=== PATIENT | female | born 1990 | race Caucasian/White ===

== ENCOUNTER 2021-09-19 09:41 | Observation (INO) | payer MEDICAID ==
[~2021-09-19] VITALS: Ht 152.4 cm; Wt 79.8 kg
[2021-09-19] MEDS ORDERED: PREN-176 MT (10:34)
[2021-09-19] MEDS ORDERED: URSO300C4 PO (10:34)
[2021-09-19] MEDS ORDERED: ASPI-1497 PO (10:36)
[2021-09-19 10:58] LABS: CLARITY URINE CLOUDY (CLEAR); COLOR URINE YELLOW (YELLOW); KETONES URINE NEGATIVE (NEGATIVE); LEUKOCYTE ESTERASE URINE 3+ (NEGATIVE); NITRITE URINE POSITIVE (NEGATIVE); OCCULT BLOOD URINE 3+ (NEGATIVE); PH URINE 6.5 (4.5-8.0); PROTEIN URINE 1+ (NEGATIVE); UROBILINOGEN URINE 0.2 E.U./dL (0.2-1.0)
[2021-09-19] MEDS ORDERED: LACTATED RINGERS 1,000 ML IV SCH (12:30)
[2021-09-19] MEDS ORDERED: CEFAZOLIN 1000MG PREMIX 50 ML IV SCH (14:00)
== END 2021-09-19 14:00 | disposition home or self-care (01) ==
LOC: 8 EST LDRP 09:41
PROVIDERS: ADMIT Obstetrics & Gynecology; ATTEND Obstetrics & Gynecology
DX: O26.853 Spotting complicating pregnancy, third trimester (principal); O26.893 Other specified pregnancy related conditions, third trimester; R10.2 Pelvic and perineal pain; Z3A.33 33 weeks gestation of pregnancy
CPT/HCPCS: 59025; 76805; 76818; 81003; 87077; 87086; 87186; 96365; G0378; J0690; 96360; 99281

== ENCOUNTER 2021-09-26 23:32 | Inpatient (IN) | payer MEDICAID ==
[~2021-09-26] VITALS: Ht 152.4 cm; Wt 79.8 kg
[~2021-09-26 23:32] MED LIST: ASPI-1497 PO; PREN-176 MT; URSO300C4 PO
[2021-09-27] MEDS ORDERED: LACTATED RINGERS 1,000 ML IV NR (00:30)
[2021-09-27] MEDS: ACETAMINOPHEN 500MG TABLET PO PRN ×4 (00:58→20:16)
[2021-09-27 01:18] LABS: HEMATOCRIT. 37.8 % (36.0-48.0); HEMOGLOBIN. 12.8 g/dL (12.0-16.0); MEAN CORPUSCULAR VOLUME 82.5 fL (81.0-99.0); MEAN PLATELET VOLUME 9.3 fl (7.4-10.4); PLATELET 223 x1000/uL (130-400); RED BLOOD CELL COUNT 4.58 mill/uL (4.2-5.4); RED CELL DISTRIBUTION WIDTH 15.2 % (11.6-14.6)
[2021-09-27 01:21] LABS: CHLORIDE 108 mEq/L (98-107)
[2021-09-27 01:42] LABS: CLARITY URINE CLOUDY (CLEAR); COLOR URINE YELLOW (YELLOW); KETONES URINE TRACE (NEGATIVE); LEUKOCYTE ESTERASE URINE 3+ (NEGATIVE); NITRITE URINE POSITIVE (NEGATIVE); OCCULT BLOOD URINE 3+ (NEGATIVE); PROTEIN URINE 1+ (NEGATIVE); SPECIFIC GRAVITY URINE 1.014 (1.005-1.030)
[2021-09-27] MEDS ORDERED: ACETAMINOPHEN 500MG TABLET PO PRN (02:15)
[2021-09-27] MEDS ORDERED: AMPICILLIN 2,000 MG in SODIUM CHLORIDE 0.9% 100 ML IV NR (02:30)
[2021-09-27] MEDS: GENTAMICIN 80MG PREMIX 100 ML IV SCH ×3 (03:41→20:04)
[2021-09-27] MEDS: LACTATED RINGERS 1,000 ML IV SCH ×2 (04:09→15:19)
[2021-09-27 06:01] LABS: PLATELET ESTIMATE NORMAL
[2021-09-27 06:43] LABS: BASOPHILS % 0.3 % (0.0-2.0); EOSINOPHILS % 0.1 % (0.0-5.0); HEMATOCRIT. 35.5 % (36.0-48.0); HEMOGLOBIN. 11.8 g/dL (12.0-16.0); LYMPHOCYTES % 7.7 % (20.0-50.0); MEAN CORPUSCULAR VOLUME 84.3 fL (81.0-99.0); MEAN PLATELET VOLUME 8.8 fl (7.4-10.4); NEUTROPHILS % 85.9 % (40.0-76.0); PLATELET 201 x1000/uL (130-400); RED BLOOD CELL COUNT 4.21 mill/uL (4.2-5.4); RED CELL DISTRIBUTION WIDTH 15.3 % (11.6-14.6)
[2021-09-27] MEDS: AMPICILLIN 1,000 MG in SODIUM CHLORIDE 0.9% 50 ML IV SCH ×3 (09:23→21:01)
[2021-09-27] MEDS: ASPIRIN 81MG TABLET PO SCH ×2 (09:25→17:01)
[2021-09-27] MEDS: URSODIOL 300MG CAPSULE PO SCH ×3 (09:25→17:01)
[2021-09-27] MEDS: PRENATAL VIT/FE FUMARATE/FA TABLET PO SCH (09:26)
[2021-09-27] MEDS: DOCUSATE SODIUM 100MG CAPSULE PO SCH (23:21)
[2021-09-28] MEDS: LACTATED RINGERS 1,000 ML IV SCH ×3 (01:02→20:35)
[2021-09-28] MEDS: AMPICILLIN 1,000 MG in SODIUM CHLORIDE 0.9% 50 ML IV SCH ×4 (03:00→20:37)
[2021-09-28] MEDS: GENTAMICIN 80MG PREMIX 100 ML IV SCH ×3 (04:03→20:24)
[2021-09-28 06:49] LABS: HEMATOCRIT 34.4 % (36.0-48.0); HEMOGLOBIN 11.4 g/dL (12.0-16.0); MEAN CORPUSCULAR HEMOGLOBIN 28.2 pg (28.0-32.0); MEAN CORPUSCULAR VOLUME 84.9 fL (81.0-99.0); PLATELET 179 x1000/uL (130-400); RED BLOOD CELL COUNT 4.05 mill/uL (4.2-5.4); RED CELL DISTRIBUTION WIDTH 15.8 % (11.6-14.6)
[2021-09-28] MEDS: ASPIRIN 81MG TABLET PO SCH ×3 (08:58→17:05)
[2021-09-28] MEDS: DOCUSATE SODIUM 100MG CAPSULE PO SCH (09:00)
[2021-09-28] MEDS: URSODIOL 300MG CAPSULE PO SCH ×3 (09:00→17:05)
[2021-09-28] MEDS: PRENATAL VIT/FE FUMARATE/FA TABLET PO SCH (09:01)
[2021-09-28 10:26] LABS: HEMOGLOBIN. 11.8 g/dL (12.0-16.0); MEAN CORPUSCULAR HEMOGLOBIN 28.7 pg (28.0-32.0); MEAN CORPUSCULAR VOLUME 84.8 fL (81.0-99.0); MEAN PLATELET VOLUME 9.2 fl (7.4-10.4); PLATELET 193 x1000/uL (130-400); RED BLOOD CELL COUNT 4.12 mill/uL (4.2-5.4); RED CELL DISTRIBUTION WIDTH 15.1 % (11.6-14.6)
[2021-09-28 10:28] LABS: CHLORIDE 106 mEq/L (98-107)
[2021-09-28 15:46] LABS: PLATELET ESTIMATE NORMAL
[2021-09-29] MEDS: AMPICILLIN 1,000 MG in SODIUM CHLORIDE 0.9% 50 ML IV SCH ×2 (02:38→09:55)
[2021-09-29] MEDS: GENTAMICIN 80MG PREMIX 100 ML IV SCH ×2 (03:44→12:25)
[2021-09-29] MEDS: LACTATED RINGERS 1,000 ML IV SCH (07:36)
[2021-09-29] MEDS: URSODIOL 300MG CAPSULE PO SCH ×2 (09:00→12:58)
[2021-09-29] MEDS: DOCUSATE SODIUM 100MG CAPSULE PO SCH (09:00)
[2021-09-29] MEDS: PRENATAL VIT/FE FUMARATE/FA TABLET PO SCH (09:26)
[2021-09-29] MEDS ORDERED: NITR50CA50 MT ×2 (15:49)
== END 2021-09-29 16:10 | disposition home or self-care (01) | DRG 566 ==
LOC: OBSVTOIN 23:32 → 8 EST LDRP 23:32 → 8 EST A/PP 09-27 06:06
PROVIDERS: ADMIT Obstetrics & Gynecology; ATTEND Obstetrics & Gynecology
DX: O23.03 Infections of kidney in pregnancy, third trimester (principal); K83.1 Obstruction of bile duct; O26.613 Liver and biliary tract disorders in pregnancy, third trimester; N12 Tubulo-interstitial nephritis, not specified as acute or chronic; Z20.822 Contact with and (suspected) exposure to COVID-19; Z3A.35 35 weeks gestation of pregnancy; B96.20 Unspecified Escherichia coli [E. coli] as the cause of diseases classified elsewhere
CPT/HCPCS: 36415; 71045; 76805; 76818; 80048; 80053; 80170; 81003; 85025; 85027; 87077; 87186; 87426; 96360; 99281; G0378; J0290; J1580; J7050; J7120

== ENCOUNTER 2021-10-15 06:36 | Inpatient (IN) | payer MEDICAID, MEDICARE ==
[~2021-10-15] VITALS: Ht 152.4 cm; Wt 79.8 kg
[~2021-10-15 06:36] MED LIST changes: +NITR50CA50 MT
[2021-10-15] MEDS ORDERED: METHYLERGONOVINE MALEATE 0.2 MG/ML IM PRN (08:30)
[2021-10-15] MEDS ORDERED: DEXT 5%/LR + PITOCIN 20UNITS/L 1,000 ML IV SCH ×2 (08:30→14:30)
[2021-10-15 08:48] LABS: BASOPHILS % 0.9 % (0.0-2.0); EOSINOPHILS % 1.1 % (0.0-5.0); HEMATOCRIT. 36.6 % (36.0-48.0); HEMOGLOBIN. 12.8 g/dL (12.0-16.0); LYMPHOCYTES % 25.4 % (20.0-50.0); MEAN CORPUSCULAR HEMOGLOBIN 29.1 pg (28.0-32.0); MEAN CORPUSCULAR VOLUME 82.9 fL (81.0-99.0); MEAN PLATELET VOLUME 9.2 fl (7.4-10.4); MONOCYTES % 8.8 % (2.0-8.0); NEUTROPHILS % 63.8 % (40.0-76.0); PLATELET 277 x1000/uL (130-400); RED BLOOD CELL COUNT 4.41 mill/uL (4.2-5.4); RED CELL DISTRIBUTION WIDTH 15.7 % (11.6-14.6)
[2021-10-15] MEDS: LACTATED RINGERS 1,000 ML IV SCH ×2 (08:57→10:04)
[2021-10-15 08:59] LABS: PARTIAL THROMBOPLASTIN TIME 27.5 sec (23.4-31.0); PROTHROMBIN TIME 10.3 sec (9.6-11.0)
[2021-10-15 09:00] LABS: CLARITY URINE CLOUDY (CLEAR); COLOR URINE DARK YELLOW (YELLOW); KETONES URINE TRACE (NEGATIVE); LEUKOCYTE ESTERASE URINE NEGATIVE (NEGATIVE); NITRITE URINE NEGATIVE (NEGATIVE); OCCULT BLOOD URINE NEGATIVE (NEGATIVE); PROTEIN URINE TRACE (NEGATIVE); SPECIFIC GRAVITY URINE 1.026 (1.005-1.030); UROBILINOGEN URINE 0.2 E.U./dL (0.2-1.0)
[2021-10-15 09:12] LABS: *AMPHETAMINES SCREEN URINE NEGATIVE (NEGATIVE); *BARBITURATES SCREEN URINE NEGATIVE (NEGATIVE); *BENZODIAZEPINES SCREEN URINE NEGATIVE (NEGATIVE); *COCAINE SCREEN URINE NEGATIVE (NEGATIVE); METHADONE URINE SCREEN NEGATIVE (NEGATIVE); OPIATES URINE SCREEN NEGATIVE (NEGATIVE)
[2021-10-15 09:13] LABS: CANNABINOID URINE SCREEN NEGATIVE (NEGATIVE); PHENCYCLIDINE URINE SCREEN NEGATIVE (NEGATIVE)
[2021-10-15 10:28] LABS: HEPATITIS B SURFACE ANTIGEN NEGATIVE
[2021-10-15] MEDS ORDERED: MORPHINE SULFATE/PF 1MG/ML 10ML AMP ONE (12:24)
[2021-10-15] MEDS ORDERED: EPHEDRINE SULFATE 50MG/ML VIAL ONE (12:56)
[2021-10-15] MEDS ORDERED: METOCLOPRAMIDE HCL 10MG/2ML VIAL ONE (12:57)
[2021-10-15] MEDS ORDERED: ONDANSETRON HCL 4MG/2ML INJ ONE (12:57)
[2021-10-15] MEDS ORDERED: OXYTOCIN 10 UNITS/ML 1ML ONE (12:57)
[2021-10-15] MEDS ORDERED: DEXAMETHASONE 4MG/ML 1ML VIAL ONE (12:57)
[2021-10-15] MEDS ORDERED: CEFAZOLIN SODIUM 1000MG/VIAL ONE (12:58)
[2021-10-15] MEDS ORDERED: PROPOFOL 200MG/20ML VIAL IV ONE (13:44)
[2021-10-15] MEDS ORDERED: KETOROLAC 60MG/2ML VIAL IM ONE (13:44)
[2021-10-15] MEDS ORDERED: ONDANSETRON HCL 4MG/2ML INJ IV PRN ×2 (14:00→14:15)
[2021-10-15] MEDS ORDERED: FENTANYL CITRATE/PF 50MCG/ML 2ML VIAL IV PRN (14:00)
[2021-10-15] MEDS ORDERED: MORPHINE SULFATE 10 MG/ML CPJ IV PRN (14:00)
[2021-10-15] MEDS ORDERED: DIPHENHYDRAMINE 50MG/ML VIAL IV PRN (14:00)
[2021-10-15] MEDS ORDERED: NALOXONE HCL 0.4 MG/ML 1ML VIAL IV PRN (14:00)
[2021-10-15] MEDS ORDERED: HYDROCODONE/ACETAMINOPHEN 5/325MG TABLET PO PRN (14:15)
[2021-10-15] MEDS ORDERED: ACETAMINOPHEN WITH CODEINE 300/30MG TABLET PO PRN (14:15)
[2021-10-15] MEDS ORDERED: IBUPROFEN 400MG TABLET PO PRN (14:15)
[2021-10-15] MEDS ORDERED: LANOLIN OINT 7GM TUBE TOP PRN (14:15)
[2021-10-15] MEDS ORDERED: BUTORPHANOL TARTRATE 2 MG/ML VIAL IM PRN (14:15)
[2021-10-15] MEDS ORDERED: RHO(D) IMMUNE GLOBULIN 300 MCG/SYR IM PRN (14:15)
[2021-10-15 16:00] VITALS: BP 112/63
[2021-10-15] MEDS ORDERED: NALOXONE HCL 0.4MG/ML VIAL IV PRN (17:45)
[2021-10-15 19:30] VITALS: BP 101/66
[2021-10-15] MEDS: KETOROLAC 30MG/ML VIAL IV SCH (20:02)
[2021-10-15] MEDS ORDERED: INFLUENZA VACCINE 05/PF 0.5 ML SYRINGE IM ONE (21:00)
[2021-10-15] MEDS: DOCUSATE SODIUM 100MG CAPSULE PO SCH (21:32)
[2021-10-16] VITALS: BP 110/69
[2021-10-16] MEDS: KETOROLAC 30MG/ML VIAL IV SCH (03:02)
[2021-10-16 04:00] VITALS: BP 100/57
[2021-10-16 07:04] LABS: BASOPHILS % 0.6 % (0.0-2.0); EOSINOPHILS % 0.3 % (0.0-5.0); HEMATOCRIT. 29.8 % (36.0-48.0); HEMOGLOBIN. 10.6 g/dL (12.0-16.0); LYMPHOCYTES % 15.2 % (20.0-50.0); MEAN CORPUSCULAR HEMOGLOBIN 29.7 pg (28.0-32.0); MEAN CORPUSCULAR VOLUME 83.9 fL (81.0-99.0); MEAN PLATELET VOLUME 9.2 fl (7.4-10.4); MONOCYTES % 8.4 % (2.0-8.0); NEUTROPHILS % 75.5 % (40.0-76.0); PLATELET 201 x1000/uL (130-400); RED BLOOD CELL COUNT 3.56 mill/uL (4.2-5.4); RED CELL DISTRIBUTION WIDTH 15.7 % (11.6-14.6)
[2021-10-16 08:00] VITALS: BP 102/58
[2021-10-16] MEDS ORDERED: INFLUENZA VACCINE 05/PF 0.5 ML SYRINGE IM ONE (09:00)
[2021-10-16] MEDS ORDERED: KETOROLAC 30MG/ML VIAL IV NR (09:15)
[2021-10-16] MEDS: PRENATAL VIT/FE FUMARATE/FA TABLET PO SCH (09:38)
[2021-10-16 15:36] VITALS: BP 99/68
[2021-10-16 19:30] VITALS: BP 116/72
[2021-10-16] MEDS: DOCUSATE SODIUM 100MG CAPSULE PO SCH (19:55)
[2021-10-17 04:00] VITALS: BP 112/71
[2021-10-17 07:53] VITALS: BP 121/78
[2021-10-17] MEDS: PRENATAL VIT/FE FUMARATE/FA TABLET PO SCH (08:52)
== END 2021-10-17 15:35 | disposition home or self-care (01) | DRG 539 ==
LOC: 8 EST LDRP 06:36 → OBSVTOIN 06:36 → 8EST 17:31
PROVIDERS: ADMIT Obstetrics & Gynecology; ATTEND Obstetrics & Gynecology
PROC: 10D00Z1 Extraction of Products of Conception, Low, Open Approach (ICD-10-PCS; principal; 2021-10-15)
PROC: 0UL70ZZ Occlusion of Bilateral Fallopian Tubes, Open Approach (ICD-10-PCS; 2021-10-15)
DX: O26.62 Liver and biliary tract disorders in childbirth (principal); K83.1 Obstruction of bile duct; O34.211 Maternal care for low transverse scar from previous cesarean delivery; O99.02 Anemia complicating childbirth; Z37.0 Single live birth; Z3A.37 37 weeks gestation of pregnancy; Z20.822 Contact with and (suspected) exposure to COVID-19; Z30.2 Encounter for sterilization; Z23 Encounter for immunization
CPT/HCPCS: 36415; 80305; 81003; 85025; 86592; 86703; 86762; 86850; 86900; 87340; 87426; 88302; 88307; 90686; J0690; J1100; J1200; J1885; J2274; J2405; J2590; J2704; J2765; J3490; J7120; A4315

== ENCOUNTER 2023-02-05 05:24 | Inpatient (IN) | payer MEDICARE ==
[~2023-02-05] VITALS: Ht 152.4 cm; Wt 60.8 kg
[2023-02-05] MEDS ORDERED: MORPHINE SULFATE 4 MG/ML CPJ (NOT FOR IM USE) IV STA (05:51)
[2023-02-05] MEDS ORDERED: FAMOTIDINE 20MG/2ML VIAL IV STA (05:51)
[2023-02-05] MEDS ORDERED: ONDANSETRON HCL 4MG/2ML INJ IV STA (05:51)
[2023-02-05 05:52] LABS: BASOPHILS % 0.4 % (0.0-2.0); EOSINOPHILS % 1.1 % (0.0-5.0); HEMATOCRIT. 38.8 % (36.0-48.0); HEMOGLOBIN. 13.2 g/dL (12.0-16.0); LYMPHOCYTES % 15.8 % (20.0-50.0); MEAN CORPUSCULAR HEMOGLOBIN 27.7 pg (28.0-32.0); MEAN PLATELET VOLUME 8.8 fl (7.4-10.4); NEUTROPHILS % 76.7 % (40.0-76.0); PLATELET 258 x1000/uL (130-400); RED BLOOD CELL COUNT 4.78 mill/uL (4.2-5.4); RED CELL DISTRIBUTION WIDTH 14.1 % (11.6-14.6)
[2023-02-05 05:59] LABS: CHLORIDE 103 mEq/L (98-107)
[2023-02-05] MEDS ORDERED: SODIUM CHLORIDE 0.9% 1,000 ML IV ONE (06:00)
[2023-02-05 07:00] LABS: HCG SCREEN NEGATIVE
[2023-02-05] MEDS ORDERED: MORPHINE SULFATE 10 MG/ML CPJ IV ONE (07:45)
[2023-02-05 08:06] LABS: CLARITY URINE CLEAR (CLEAR); COLOR URINE YELLOW (YELLOW); KETONES URINE 2+ (NEGATIVE); LEUKOCYTE ESTERASE URINE NEGATIVE (NEGATIVE); NITRITE URINE NEGATIVE (NEGATIVE); OCCULT BLOOD URINE NEGATIVE (NEGATIVE); PROTEIN URINE NEGATIVE (NEGATIVE); SPECIFIC GRAVITY URINE 1.016 (1.005-1.030); UROBILINOGEN URINE 0.2 E.U./dL (0.2-1.0)
[2023-02-05] MEDS ORDERED: PIPERACILLIN/TAZ 3.375G PREMIX 50 ML IV ONE (08:45)
[2023-02-05] MEDS ORDERED: ONDANSETRON HCL 4MG/2ML INJ IV PRN (13:15)
[2023-02-05] MEDS ORDERED: KETOROLAC 30MG/ML VIAL IV PRN (13:15)
[2023-02-05] MEDS ORDERED: PIPERACILLIN/TAZ 3.375G PREMIX 50 ML IV SCH (13:30)
[2023-02-05 17:31] VITALS: BP 140/90
[2023-02-05 20:00] VITALS: BP 127/70
[2023-02-05] MEDS ORDERED: POTASSIUM CHLORIDE 20MEQ TABLET SR PO NR (22:45)
[2023-02-05] MEDS: PIPERACILLIN/TAZOBACTAM 3.375 G in DEXTROSE 5% WATER 50 ML IV SCH (23:35)
[2023-02-06] VITALS: BP 111/63
[2023-02-06 04:00] VITALS: BP 138/78
[2023-02-06] MEDS: PIPERACILLIN/TAZOBACTAM 3.375 G in DEXTROSE 5% WATER 50 ML IV SCH (05:22)
[2023-02-06] MEDS ORDERED: PIPERACILLIN/TAZOBACTAM 3.375 G in DEXTROSE 5% WATER 50 ML IV SCH (06:00)
[2023-02-06 07:09] LABS: HEMATOCRIT. 40.3 % (36.0-48.0); MEAN CORPUSCULAR HEMOGLOBIN 27.9 pg (28.0-32.0); MEAN CORPUSCULAR VOLUME 80.5 fL (81.0-99.0); MEAN PLATELET VOLUME 9.2 fl (7.4-10.4); PLATELET 281 x1000/uL (130-400); RED BLOOD CELL COUNT 5.01 mill/uL (4.2-5.4); RED CELL DISTRIBUTION WIDTH 14.4 % (11.6-14.6)
[2023-02-06 07:39] LABS: CHLORIDE 102 mEq/L (98-107)
[2023-02-06 08:00] VITALS: BP_SYST 120; BP_SYST 125; BP_DIAS 71; BP_DIAS 72
[2023-02-06 11:59] VITALS: BP 145/89
[2023-02-06 13:18] LABS: PLATELET ESTIMATE NORMAL
[2023-02-06 14:46] VITALS: BP 136/82
[2023-02-06 16:00] VITALS: BP 136/82
== END 2023-02-06 15:50 | disposition home or self-care (01) ==
LOC: ER 05:24 → 6EST 14:07
PROVIDERS: ADMIT Internal Medicine; ATTEND Internal Medicine
DX: K80.00 Calculus of gallbladder with acute cholecystitis without obstruction (principal); R65.10 Systemic inflammatory response syndrome (SIRS) of non-infectious origin without acute organ dysfunction; E87.6 Hypokalemia; Z98.891 History of uterine scar from previous surgery
CPT/HCPCS: 36415; 76705; 80048; 80053; 81003; 84484; 84703; 85025; 93005; 99291; J1885; J2270; J2405; J2543; J3490; J7030; J7060

== ENCOUNTER 2023-06-02 10:58 | Emergency (ER) | payer MEDICAID, MEDICARE ==
[~2023-06-02] VITALS: Ht 152.4 cm; Wt 71.0 kg
[2023-06-02 11:20] VITALS: O2SAT 100
[2023-06-02] MEDS ORDERED: ONDANSETRON HCL 4MG/2ML INJ IV STA ×2 (11:42→13:22)
[2023-06-02] MEDS ORDERED: KETOROLAC 30MG/ML VIAL IV STA (11:42)
[2023-06-02] MEDS ORDERED: SODIUM CHLORIDE 0.9% 1,000 ML IV ONE (11:45)
[2023-06-02 11:53] LABS: BASOPHILS % 0.4 % (0.0-2.0); EOSINOPHILS % 0.5 % (0.0-5.0); HEMATOCRIT. 41.9 % (36.0-48.0); HEMOGLOBIN. 14.4 g/dL (12.0-16.0); LYMPHOCYTES % 12.3 % (20.0-50.0); MEAN CORPUSCULAR HEMOGLOBIN 27.6 pg (28.0-32.0); MEAN CORPUSCULAR HGB CONC 34.3 g/dL (31.0-37.0); MEAN CORPUSCULAR VOLUME 80.3 fL (81.0-99.0); MEAN PLATELET VOLUME 8.3 fl (7.4-10.4); NEUTROPHILS % 79.8 % (40.0-76.0); PLATELET 307 x1000/uL (130-400); RED BLOOD CELL COUNT 5.22 mill/uL (4.2-5.4); RED CELL DISTRIBUTION WIDTH 13.7 % (11.6-14.6); WHITE BLOOD COUNT 7.8 x1000/uL (4.5-11.0)
[2023-06-02 11:58] LABS: CHLORIDE 106 mEq/L (98-107); INDEX HEMOLYSI 1 (1-3); INDEX ICTERIC 1 (1-4); INDEX LIPEMIC 1 (1-3); POTASSIUM 3.6 mEq/L (3.5-5.1); SODIUM 135 mEq/L (136-145)
[2023-06-02 12:07] LABS: ALANINE AMINOTRANSFERASE 516 IU/L (13-61); ALBUMIN 4.1 g/dL (3.4-5.0); ASPARTATE AMINOTRANSFERASE 736 IU/L (15-37); BILIRUBIN TOTAL 2.3 mg/dL (0.1-1.0); CALCIUM 9.1 mg/dL (8.5-10.1); CARBON DIOXIDE 23 mEq/L (21-32); CREATININE 0.5 mg/dL (0.6-1.3); GLUCOSE 114 mg/dL (70-105); PROTEIN TOTAL 7.8 g/dL (6.0-8.3); UREA NITROGEN BLOOD 13 mg/dL (7-21)
[2023-06-02 12:20] LABS: HCG SCREEN NEGATIVE
[2023-06-02] MEDS ORDERED: MORPHINE SULFATE 4 MG/ML CPJ (NOT FOR IM USE) IV STA (13:22)
[2023-06-02] MEDS ORDERED: PIPERACILLIN/TAZ 3.375G PREMIX 50 ML IV NR (15:30)
[2023-06-02] MEDS ORDERED: PIPERACILLIN/TAZOBACTAM 3.375GM/50ML PREMIX IV NR (15:30)
[2023-06-02] MEDS ORDERED: KETOROLAC 15MG/ML VIAL IV NR (15:30)
[2023-06-02 22:55] VITALS: BP 131/77; PULSE 60; RESP 12; TEMP 98.7
== END 2023-06-02 22:55 | disposition short-term general hospital (02) ==
LOC: ER 10:58
DX: K81.0 Acute cholecystitis (principal); Z87.19 Personal history of other diseases of the digestive system; Z98.890 Other specified postprocedural states; Z98.51 Tubal ligation status
CPT/HCPCS: 80053; 84703; 83690; 85025; 36415; 76705; 96361; 96365; 96375; 99285; J1885; J2405; J2543; J2270; J7030; Z7610 ×4